=== PATIENT | male | born 1980 | race Hispanic/Latino ===

== ENCOUNTER 2017-08-31 18:59 | Observation (INO) | payer BC ==
[2017-08-31] MEDS ORDERED: Ondansetron ODT 8 MG TAB ONE (19:42)
[2017-08-31 20:02] LABS: #Eosinphils 0.1 thou/uL (0.0-0.7); #Lymphocytes 0.6 thou/uL (1.20-3.40); #Monocytes 0.8 thou/uL (0.11-0.59); #Neutrophils 9.3 thou/uL (1.40-6.50); %Basophils 0.1 % (0.0-1.0); %Eosinophils 1.2 % (0.0-10.0); %Lymphocytes 5.7 % (21.0-51.0); %Neutrophils 86.1 % (42.0-75.0); Hemoglobin 17.1 g/dL (14.0-18.0); Mean Corpuscular Hemoglobin 29.6 pg (27.0-31.0); Mean Corpuscular Volume 82.1 fl (80.0-94.0); Mean Platelet Volume 7.9 fL (7.4-10.4); Platelet Count 253 thou/uL (130-400); RBC Distribution Width 12.2 % (11.5-14.5); Red Blood Cell (RBC) Count 5.77 mill/uL (4.70-6.10); White Blood Cell (WBC) Count 10.8 thou/uL (4.8-10.8)
[2017-08-31 20:27] LABS: ALT (SGPT) 64 U/L (8-55); AST (SGOT) 37 U/L (5-34); Albumin 4.3 g/dL (3.5-5.0); Alkaline Phosphatase 122 U/L (40-150); Anion Gap 12 mmol/L (10-20); BUN (Urea Nitrogen) 10 mg/dL (8.9-20.6); Bilirubin, Total 0.6 mg/dL (0.2-1.2); Calc. Creatinine Clearance 0 mL/min (70-130); Calcium 9.3 mg/dL (7.8-10.44); Carbon Dioxide 24 mmol/L (22-29); Chloride 103 mmol/L (98-107); Estimated GFR-MDRD Greater than 90; Globulin 2.8 g/dL (2.4-3.5); Glucose 118 mg/dL (70-105); Lipase 48 U/L (8-78); Potassium 3.8 mmol/L (3.5-5.1); Protein, Total 7.1 g/dL (6.0-8.3); Sodium 135 mmol/L (136-145)
[2017-08-31] MEDS ORDERED: Acetaminophen 325 MG TAB ONE (21:31)
--- NOTE | 2017-08-31 21:43 | RAD ---
PORTABLE CHEST: HISTORY: Nausea and vomiting. Diarrhea. COMPARISON: 06/23/2016 FINDINGS: The lung underwood are clear. No infiltrate seen. Heart and mediastinum unremarkable. IMPRESSION: No acute process. POS: [facility]
[2017-08-31 21:47] LABS: Bilirubin Negative (Negative); Blood, Urine Negative (Negative); Clarity CLEAR (Clear); Glucose, Urine (Dipstick) Negative (Negative); Leukocyte Negative (Negative); Nitrite Negative (Negative); Protein, Urine (Dipstick) Negative (Neg-Trace); Specific Gravity, Urine 1.015 (1.002-1.036); Urobilinogen 0.2 mg/dL (0.2-1.0)
[2017-08-31] MEDS ORDERED: methylPREDNISolone Sod Succ/PF 125 MG/2 ML VIAL ONE (22:08)
[2017-08-31] MEDS ORDERED: Water For Inject, Bacteriostat 30 ML ONE (22:10)
[2017-08-31] MEDS ORDERED: Sodium Chloride 0.9% 1,000 ML IV SCH (23:47)
[2017-08-31] MEDS ORDERED: Ondansetron PF 4 MG/2 ML Vial IVP PRN (23:47)
[2017-09-01 00:21] VITALS: BMI 37.6
[2017-09-01 00:31] LABS: HIV (1/2) Antibody/Antigen Non-Reactive (NonReactive); HIV 1/2 INDEX 0.08 S/CO (<1.00)
[2017-09-01] MEDS ORDERED: Cyclobenzaprine 10 MG TAB PO PRN (01:25)
[2017-09-01] MEDS ORDERED: Ondansetron PF 4 MG/2 ML Vial IVP PRN (01:25)
[2017-09-01] MEDS ORDERED: Acetaminophen 500 MG TAB PO PRN (01:25)
[2017-09-01] MEDS ORDERED: Ondansetron ODT 4 MG TAB PO PRN (01:25)
[2017-09-01] MEDS ORDERED: traMADol HCl 50 MG TAB PO PRN (01:34)
[2017-09-01] MEDS: Sodium Chloride 0.9% 1,000 ML IV SCH ×2 (01:44→09:44)
[2017-09-01] MEDS ORDERED: Hydroxychloroquine Sulfate 200 MG TAB PO SCH ×2 (02:00→09:00)
[2017-09-01] MEDS ORDERED: Famotidine 20 MG TAB PO SCH ×2 (02:00→09:00)
[2017-09-01] MEDS ORDERED: Metoprolol Tartrate 25 MG TAB PO SCH ×2 (02:00→09:00)
[2017-09-01] MEDS ORDERED: Mycophenolate 250 MG CAP PO SCH ×2 (02:00→09:00)
[2017-09-01] MEDS ORDERED: Colchicine 0.6 MG TAB PO SCH ×2 (02:00→09:00)
[2017-09-01] MEDS: traMADol HCl 50 MG TAB PO PRN ×2 (02:13→09:25)
[2017-09-01 05:23] LABS: Band 10 % (5-11); Lymphocytes 1 % (21-51); MDiff Complete? YES; Mean Corpuscular HGB CONC 35.2 g/dL (32.0-36.0); Mean Corpuscular Volume 82.4 fl (80.0-94.0); Mean Platelet Volume 8.5 fL (7.4-10.4); Monocytes 1 % (0-10); Neutrophil 88 % (42-75); PLT Morphology Comment Appears Adequate; Platelet Count 255 thou/uL (130-400); RBC Distribution Width 12.1 % (11.5-14.5); Red Blood Cell (RBC) Count 5.53 mill/uL (4.70-6.10); White Blood Cell (WBC) Count 10.5 thou/uL (4.8-10.8)
[2017-09-01 05:31] LABS: ALT (SGPT) 56 U/L (8-55); AST (SGOT) 27 U/L (5-34); Albumin 4.2 g/dL (3.5-5.0); Alkaline Phosphatase 112 U/L (40-150); Anion Gap 12 mmol/L (10-20); BUN (Urea Nitrogen) 9 mg/dL (8.9-20.6); Bilirubin, Total 0.6 mg/dL (0.2-1.2); Calc. Creatinine Clearance 213 mL/min (70-130); Calcium 9.2 mg/dL (7.8-10.44); Carbon Dioxide 24 mmol/L (22-29); Chloride 106 mmol/L (98-107); Estimated GFR-MDRD Greater than 90; Globulin 2.6 g/dL (2.4-3.5); Glucose 159 mg/dL (70-105); Potassium 3.9 mmol/L (3.5-5.1); Protein, Total 6.8 g/dL (6.0-8.3); Sodium 138 mmol/L (136-145)
--- NOTE | 2017-09-01 06:32 | HP ---
PRIMARY CARE PROVIDER: Dr. Leander Villaseñor CHIEF COMPLAINT: Nausea, vomiting, diarrhea. HISTORY OF PRESENT ILLNESS: This is a 37-year-old male who presented to [facility] Emergency Department complaining of less than 24-hour history of nausea, vomiting and diarrhea. The patient apparently had up to 7 large volume watery diarrhea episodes with associated e mesis. The patient denied any travel history, but does state that his younger son has had similar sy mptoms over the last 48 hours prior to the patient's presentation to the emergency room. The patient 's son had nausea, vomiting, diarrhea, and fever. The patient denied any recent antibiotic exposure, blood in the stool or documented fever at home. The patient states he feels sweaty and some chills, but did not take any specific home remedy for relief. The patient with significant history of immun ocompromised on chronic, colchicine, Plaquenil, CellCept and Benlysta for systemic lupus erythematosu s. The patient states he is on no specific new medication regimen in the last year. In the emergenc y room, the patient underwent general evaluation including metabolic screening showing no acute proce ss. The patient did receive treatment including intravenous normal saline x3 liters and IV Zofran, S esteban-Medrol and Tylenol. The patient was transferred to the observation unit for evaluation. PAST MEDICAL HISTORY: 1. Systemic lupus erythematosus. 2. History of pericarditis secondary to #1. 3. History of latent tuberculosis on previous isoniazid and vitamin B6. PAST SURGICAL HISTORY: Status post PICC line placement with subsequent removal. CURRENT MEDICATIONS: 1. Colchicine 0.6 mg p.o. b.i.d. 2. Cyclobenzaprine 10 mg p.o. p.r.n. 3. Plaquenil 200 mg p.o. b.i.d. 4. Losartan 100 mg p.o. daily. 5. Metoprolol tartrate 25 mg p.o. b.i.d. 6. CellCept 1000 mg p.o. b.i.d. 7. Prednisone 3 mg p.o. daily. 8. Tramadol 50 mg 1-2 tabs p.o. q.6 hours p.r.n. pain. ALLERGIES: No known drug allergies. FAMILY HISTORY: Father and mother with diabetes mellitus type 2. SOCIAL HISTORY: The patient is , resides in [place], [place]. Remote history of marijuana use. No current alcohol, tobacco or illicit drug use. Currently unemployed. REVIEW OF SYSTEMS: The following complete review of systems was negative, unless otherwise mentioned in the HPI or below: Constitutional: Weight loss or gain, ability to conduct usual activities. Skin: Rash, itching. Eyes: Double vision, pain. ENT/Mouth: Nose bleeding, neck stiffness, pain, tenderness. Cardiovascular: Palpitations, dyspnea on exertion, orthopnea. Respiratory: Shortness of breath, wheezing, cough, hemoptysis, fever or night sweats. Gastrointestinal: Poor appetite, abdominal pain, heartburn, nausea, vomiting, constipation, or diarrhea. Genitourinary: Urgency, frequency, dysuria, nocturia. Musculoskeletal: Pain, swelling. Neurologic/Psychiatric: Anxiety, depression. Allergy/Immunologic: Skin rash, bleeding tendency. PHYSICAL EXAMINATION: VITAL SIGNS: On admission, blood pressure 137/74, pulse 100, respiratory rate 16, temperature 98.6 d egrees Fahrenheit, O2 saturation 95% on room air. GENERAL APPEARANCE: This is a 37-year-old male, alert and oriented x3, pleasant, conversant , in no acute distress. HEENT: Pupils are equal, round, and reactive to light and accommodation. Extraocular muscles are in tact. No scleral icterus, no conjunctival injection. Nares patent. OP is clear. Oral mucosa dry a ppearing. NECK: Supple, no cervical adenopathy, no thyromegaly, no carotid bruits, no JVD appreciated. Cervic al spine full active and passive range of motion. No meningeal signs appreciated. CHEST: Lungs are clear to auscultation bilaterally. CARDIOVASCULAR: S1, S2, without noted murmur, rub, or gallop. ABDOMEN: Rounded, soft, nontender. Bowel sounds are diminished in all 4 quadrants. No palpable mas s. No rebound or guarding appreciated. EXTREMITIES: Warm and dry with fair turgor. No clubbing, cyanosis or asymmetric edema appreciated. Pulses palpable distally at the dorsalis pedis, posterior tibial, and popliteal arteries bilaterally . Capillary refill less than 2 seconds. NEUROLOGIC: Cranial nerves II-XII are grossly intact. No focal or lateralizing signs appreciated. PERTINENT LABORATORY AND X-RAY FINDINGS: Basic metabolic profile within normal limits. Total biliru bin 0.6, AST 37, ALT 64, alkaline phosphatase 122, lipase 48. CBC showed a white blood cell count of 10.8, hemoglobin 17, hematocrit 47, platelet count 253 with 86% neutrophils. Lactic acid level 1.6. Urinalysis negative 08/31/2017. Portable chest x-ray dated 08/31/2017 showed no acute cardiopulmon bridger process. ASSESSMENT AND PLAN: 1. Acute gastroenteritis. Suspect viral etiology. We will continue intravenous normal saline at 12 5 mL per hour. Continue supportive management. Hold antidiarrheals given the patient's acute presen tation. Check stool for C. difficile antigen and toxin. Suspect improvement and resolution over the next 24-48 hours. 2. Nausea, vomiting secondary to #1. Continue intravenous normal saline at 125 mL per hour. Zofran 4 mg IV every 6 hours p.r.n. 3. Systemic lupus erythematosus, on chronic immunosuppressive therapy. Stable currently. Resume co lchicine 0.6 mg b.i.d. and Plaquenil 200 mg p.o. b.i.d. and CellCept 1000 mg p.o. b.i.d. 4. Sinus tachycardia. Suspect secondarily to dehydration and infectious process. We will continue intravenous normal saline as outlined previously. Resume metoprolol tartrate 25 mg p.o. b.i.d. 5. Moderate dehydration. Continue IV fluids as outlined previously. Encourage increased free water intake orally. 6. Prophylaxis. Sequential compression devices while in bed. Pepcid 20 mg p.o. b.i.d. 7. Code status is full. Surrogate medical decision maker is the patient's spouse.
[2017-09-01] MEDS ORDERED: predniSONE 1 MG TAB PO SCH (08:00)
[2017-09-01 16:03] VITALS: BP 108/62; TEMP 97.8
--- NOTE | 2017-09-02 14:31 | DIS ---
DATE OF ADMISSION: 09/01/2017 DATE OF DISCHARGE: 09/01/2017 DISCHARGE DIAGNOSES: As of the followin. Acute gastritis, possible viral etiology. 2. Nausea and vomiting. 3. History of lupus. 4. Sinus tachycardia and moderate dehydration. HOSPITAL COURSE: The patient is a very pleasant 37-year-old male, who initially presented to the [facility] for nausea, vomiting, and diarrhea. The patient had about 6-7 bouts of watery diarrhea and als o emesis. Patient initially was given IV fluids, and given a history of immunocompromised, he also w as treated with IV antibiotics. The patient continued to improve throughout the hospital stay. His stool for Campylobacter was negative. Stool for E. coli toxins were also negative. Also, C. diffici le toxin was checked, which also was negative. The patient actually started feeling well the and he was discharged home. HOME MEDICATIONS: Were as of the following. 1. He is on tramadol 50-100 mg b.i.d. 2. Prednisone 3 mg q.a.m. 3. Lopressor 25 mg b.i.d. 4. Plaquenil 200 mg b.i.d. 5. Colchicine 0.6 mg b.i.d. 6. CellCept 1000 mg p.o. b.i.d. Again, patient's diarrhea subsided and he was discharged home. The patient will follow up as an outp atient with his primary and his escrow manager. PHYSICAL EXAMINATION: VITAL SIGNS: Temperature 97.8, pulse 89, respirations 20, O2 sat 95% on room air, blood pressure 108 /62. GENERAL: He is awake, alert, oriented x3. He does not appear in distress. CARDIOVASCULAR: S1 and S2 present. No murmurs, rubs, or gallops. ABDOMEN: Soft and nontender. Bowel sounds are present x2. EXTREMITIES: No edema. Pedal pulses are present x2.
== END 2017-09-01 17:45 | disposition home or self-care (01) ==
LOC: ERS 18:59 → 2SW 23:19 → UNDODISOB 09-01 17:25
PROVIDERS: ADMIT Family Medicine; ATTEND Family Medicine
DX: K52.9 Noninfective gastroenteritis and colitis, unspecified (principal); R00.0 Tachycardia, unspecified; M32.9 Systemic lupus erythematosus, unspecified; Z79.899 Other long term (current) drug therapy
CPT/HCPCS: 36415; 71045; 80053; 81003; 83605; 83630; 83690; 85007; 85025; 85027; 85652; 86140; 87040; 87045; 87046; 87081; 87324; 87389; 87449; 87899; 96361; 96374; G0378; J2930; J7517

== ENCOUNTER 2018-01-22 03:02 | Emergency (ER) | payer BC | END 2018-01-22 03:42 | disposition home or self-care (01) | LOC: ERS 03:02 | DX: F19.939 Other psychoactive substance use, unspecified with withdrawal, unspecified (principal); E78.5 Hyperlipidemia, unspecified; I10 Essential (primary) hypertension; Z87.891 Personal history of nicotine dependence; Z79.899 Other long term (current) drug therapy | CPT/HCPCS: 99283 ==

== ENCOUNTER 2018-02-02 09:16 | Outpatient (CLI) | payer BC ==
--- NOTE | 2018-02-02 11:35 | RAD ---
PA AND LATERAL VIEWS CHEST: HISTORY: Nonspecific reaction to gamma interferon without active TB. FINDINGS: Comparison is made with the exam of 10/18/2015. The heart size is normal. No focal areas of consolidation, pneumothoraces, or pleural effusions are seen. No acute osseous abnormalities are identified. IMPRESSION: No acute process. No evidence of active pulmonary tuberculosis. POS: [facility]
== END 2018-02-02 09:17 | disposition home or self-care (01) ==
LOC: BICRAD 09:16
PROVIDERS: ATTEND Internal Medicine Rheumatology
DX: R76.12 Nonspecific reaction to cell mediated immunity measurement of gamma interferon antigen response without active tuberculosis (principal)
CPT/HCPCS: 71046

== ENCOUNTER 2018-02-20 | Emergency (ER) | payer BC ==
[2018-02-20] MEDS ORDERED: Dexamethasone 4 MG TAB ONE (00:32)
[2018-02-20] MEDS ORDERED: Ketorolac Tromethamine 30 MG/ML VIAL ONE (00:32)
[2018-02-20 00:45] LABS: #Eosinphils 0.1 thou/uL (0.0-0.7); #Lymphocytes 1.6 thou/uL (1.20-3.40); #Monocytes 0.8 thou/uL (0.11-0.59); #Neutrophils 5.8 thou/uL (1.40-6.50); %Basophils 0.4 % (0.0-1.0); %Eosinophils 1.7 % (0.0-10.0); %Lymphocytes 19.3 % (21.0-51.0); %Neutrophils 69.5 % (42.0-75.0); Hemoglobin 15.7 g/dL (14.0-18.0); Mean Corpuscular HGB CONC 34.2 g/dL (32.0-36.0); Mean Corpuscular Hemoglobin 28.1 pg (27.0-31.0); Mean Platelet Volume 8.9 fL (7.4-10.4); Platelet Count 285 thou/uL (130-400); RBC Distribution Width 12.3 % (11.5-14.5); Red Blood Cell (RBC) Count 5.59 mill/uL (4.70-6.10); White Blood Cell (WBC) Count 8.4 thou/uL (4.8-10.8)
[2018-02-20 01:05] LABS: ALT (SGPT) 85 U/L (8-55); AST (SGOT) 45 U/L (5-34); Albumin 4.2 g/dL (3.5-5.0); Alkaline Phosphatase 147 U/L (40-150); Anion Gap 15 mmol/L (10-20); BUN (Urea Nitrogen) 13 mg/dL (8.9-20.6); Bilirubin, Total 0.5 mg/dL (0.2-1.2); CRP (Inflammatory) Less than 0.50 mg/dL (= or < 0.5); Calc. Creatinine Clearance 0 mL/min (70-130); Calcium 9.3 mg/dL (7.8-10.44); Carbon Dioxide 23 mmol/L (22-29); Chloride 105 mmol/L (98-107); Estimated GFR-MDRD Greater than 90; Globulin 3.1 g/dL (2.4-3.5); Glucose 141 mg/dL (70-105); Potassium 3.5 mmol/L (3.5-5.1); Protein, Total 7.3 g/dL (6.0-8.3); Sodium 139 mmol/L (136-145)
== END 2018-02-20 01:29 | disposition home or self-care (01) ==
LOC: ERS
DX: M32.9 Systemic lupus erythematosus, unspecified (principal); E78.5 Hyperlipidemia, unspecified; I10 Essential (primary) hypertension; Z87.891 Personal history of nicotine dependence; Z79.899 Other long term (current) drug therapy
CPT/HCPCS: 80053; 85025; 85652; 86140; 96361; 96374; J1885; J8540

== ENCOUNTER 2018-03-09 08:18 | Emergency (ER) | payer BC ==
[2018-03-09] MEDS ORDERED: Ondansetron ODT 8 MG TAB ONE (09:21)
[2018-03-09 09:47] LABS: #Eosinphils 0.2 thou/uL (0.0-0.7); #Lymphocytes 1.2 thou/uL (1.20-3.40); #Monocytes 0.6 thou/uL (0.11-0.59); #Neutrophils 5.3 thou/uL (1.40-6.50); %Basophils 0.3 % (0.0-1.0); %Eosinophils 2.9 % (0.0-10.0); %Lymphocytes 16.1 % (21.0-51.0); %Monocytes 8.3 % (0.0-10.0); %Neutrophils 72.4 % (42.0-75.0); Hemoglobin 16.1 g/dL (14.0-18.0); Mean Corpuscular HGB CONC 33.7 g/dL (32.0-36.0); Mean Corpuscular Hemoglobin 27.8 pg (27.0-31.0); Mean Corpuscular Volume 82.6 fL (78.0-98.0); Mean Platelet Volume 8.9 fL (7.4-10.4); Platelet Count 239 thou/uL (130-400); RBC Distribution Width 12.3 % (11.5-14.5); Red Blood Cell (RBC) Count 5.78 mill/uL (4.70-6.10); White Blood Cell (WBC) Count 7.4 thou/uL (4.8-10.8)
[2018-03-09 10:06] LABS: ALT (SGPT) 89 U/L (8-55); AST (SGOT) 48 U/L (5-34); Albumin 4.1 g/dL (3.5-5.0); Alkaline Phosphatase 131 U/L (40-150); Anion Gap 11 mmol/L (10-20); BUN (Urea Nitrogen) 10 mg/dL (8.9-20.6); Bilirubin, Total 0.6 mg/dL (0.2-1.2); Calc. Creatinine Clearance 0 mL/min (70-130); Calcium 9.4 mg/dL (7.8-10.44); Carbon Dioxide 25 mmol/L (22-29); Chloride 107 mmol/L (98-107); Estimated GFR-MDRD Greater than 90; Globulin 2.7 g/dL (2.4-3.5); Glucose 131 mg/dL (70-105); Potassium 3.7 mmol/L (3.5-5.1); Protein, Total 6.8 g/dL (6.0-8.3); Sodium 139 mmol/L (136-145)
== END 2018-03-09 10:50 | disposition home or self-care (01) ==
LOC: ERS 08:18
DX: F11.23 Opioid dependence with withdrawal (principal); K75.9 Inflammatory liver disease, unspecified; E78.5 Hyperlipidemia, unspecified; Z87.891 Personal history of nicotine dependence; Z79.899 Other long term (current) drug therapy
CPT/HCPCS: 36415; 80053; 85025; 94760; 96365; 96375; 99284; J1200; J1885; J2765; S0028

== ENCOUNTER 2018-03-09 14:30 | Emergency (ER) | payer BC ==
[2018-03-09] MEDS ORDERED: Dicyclomine 20 MG TAB ONE (15:13)
[2018-03-09] MEDS ORDERED: cloNIDine 0.1 MG TAB ONE (15:13)
[2018-03-09] MEDS ORDERED: Ketorolac Tromethamine 30 MG/ML VIAL ONE (15:14)
[2018-03-09] MEDS ORDERED: Famotidine/PF 20 mg/2ml Vial ONE (15:14)
[2018-03-09] MEDS ORDERED: Metoclopramide HCl 10 MG/2 ML VIAL ONE (15:14)
[2018-03-09] MEDS ORDERED: diphenhydrAMINE 50 MG/ML VIAL ONE (15:14)
== END 2018-03-09 16:29 | disposition home or self-care (01) ==
LOC: SCSER 14:30
DX: F11.23 Opioid dependence with withdrawal (principal); I10 Essential (primary) hypertension; E78.5 Hyperlipidemia, unspecified; Z79.899 Other long term (current) drug therapy
CPT/HCPCS: 94760; J1200; J1885; J2765; S0028

== ENCOUNTER 2018-04-21 14:11 | Emergency (ER) | payer BC ==
[2018-04-21 14:59] LABS: #Eosinphils 0.1 thou/uL (0.0-0.7); #Lymphocytes 1.4 thou/uL (1.20-3.40); #Monocytes 0.6 thou/uL (0.11-0.59); #Neutrophils 5.3 thou/uL (1.40-6.50); %Basophils 0.5 % (0.0-1.0); %Eosinophils 1.1 % (0.0-10.0); %Lymphocytes 18.4 % (21.0-51.0); %Monocytes 8.4 % (0.0-10.0); %Neutrophils 71.5 % (42.0-75.0); Hemoglobin 16.6 g/dL (14.0-18.0); Mean Corpuscular HGB CONC 34.8 g/dL (32.0-36.0); Mean Corpuscular Hemoglobin 29.3 pg (27.0-31.0); Mean Corpuscular Volume 84.2 fL (78.0-98.0); Mean Platelet Volume 8.9 fL (7.4-10.4); Platelet Count 292 thou/uL (130-400); RBC Distribution Width 12.1 % (11.5-14.5); Red Blood Cell (RBC) Count 5.68 mill/uL (4.70-6.10); White Blood Cell (WBC) Count 7.4 thou/uL (4.8-10.8)
[2018-04-21 15:12] LABS: ALT (SGPT) 140 U/L (8-55); AST (SGOT) 90 U/L (5-34); Albumin 4.4 g/dL (3.5-5.0); Alkaline Phosphatase 143 U/L (40-150); Anion Gap 17 mmol/L (10-20); BUN (Urea Nitrogen) 10 mg/dL (8.9-20.6); Bilirubin, Total 0.8 mg/dL (0.2-1.2); CK (CPK) 134 U/L (30-200); Calc. Creatinine Clearance 0 mL/min (70-130); Calcium 9.7 mg/dL (7.8-10.44); Carbon Dioxide 20 mmol/L (22-29); Chloride 106 mmol/L (98-107); Estimated GFR-MDRD Greater than 90; Globulin 2.3 g/dL (2.4-3.5); Glucose 141 mg/dL (70-105); Lipase 45 U/L (8-78); Potassium 3.5 mmol/L (3.5-5.1); Protein, Total 6.7 g/dL (6.0-8.3); Sodium 139 mmol/L (136-145)
--- NOTE | 2018-04-21 15:27 | RAD ---
CHEST ONE VIEW: Date: 04-21-18 Time: 2:34 p.m. History: Chest pain. FINDINGS: Comparison is made with exam of 02-02-18. The heart size is normal. The lungs are expanded without focal areas of consolidation, pneumothoraces or pleural effusions. IMPRESSION: No radiographic evidence of acute cardiopulmonary process. POS: [facility]
== END 2018-04-21 17:11 | disposition home or self-care (01) ==
LOC: ERS 14:11
DX: F45.8 Other somatoform disorders (principal); E78.5 Hyperlipidemia, unspecified; I10 Essential (primary) hypertension; Z87.891 Personal history of nicotine dependence; Z79.899 Other long term (current) drug therapy; Z79.891 Long term (current) use of opiate analgesic
CPT/HCPCS: 36415; 71045; 80053; 82550; 83690; 84484; 85025; 93005

== ENCOUNTER 2018-06-29 06:56 | Outpatient (CLI) | payer BC ==
--- NOTE | 2018-06-29 07:59 | ULT ---
FEXAM: US Gallbladder RUQ CLINICAL HISTORY: Abnormal liver.. COMPARISON: None. FINDINGS: Exam is limited by patient body habitus and bowel gas Liver:Increased echogenicity may be due to hepatic steatosis or hepatocellular disease. Subsequent ev aluation for hepatic masses and intrahepatic biliary dilatation is limited. Bile ducts: Common bile duct diameter is 0.42 cm Gallbladder: No sonographic evidence of cholelithiasis, gallbladder wall thickening or pericolic cyst ic fluid. Sanz's sign:Negative Pancreas: Not well seen Right kidney: Right kidney has a normal cortical echotexture, measuring 5.6 x 5.4 x 12.1 cm. No hydro nephrosis. IMPRESSION: No sonographic evidence of cholelithiasis or cholecystitis.
== END 2018-06-29 06:57 | disposition home or self-care (01) ==
LOC: BICULT 06:56
PROVIDERS: ATTEND Internal Medicine Rheumatology
DX: R74.8 Abnormal levels of other serum enzymes (principal)
CPT/HCPCS: 76705

== ENCOUNTER 2018-10-02 22:40 | Emergency (ER) | payer BC | END 2018-10-02 22:45 | disposition left against medical advice (07) | LOC: ERS 22:40 | DX: Z53.21 Procedure and treatment not carried out due to patient leaving prior to being seen by health care provider (principal) ==

== ENCOUNTER 2018-10-02 23:00 | Emergency (ER) | payer BC ==
[2018-10-03 00:16] LABS: ALT (SGPT) 271 U/L (8-55); AST (SGOT) 188 U/L (5-34); Albumin 3.8 g/dL (3.5-5.0); Alkaline Phosphatase 151 U/L (40-150); Anion Gap 14 mmol/L (10-20); BUN (Urea Nitrogen) 9 mg/dL (8.9-20.6); Bilirubin, Total 0.6 mg/dL (0.2-1.2); CK (CPK) 102 U/L (30-200); Calc. Creatinine Clearance 0 mL/min (70-130); Calcium 9.6 mg/dL (7.8-10.44); Carbon Dioxide 28 mmol/L (22-29); Chloride 102 mmol/L (98-107); Estimated GFR-MDRD 78; Globulin 2.6 g/dL (2.4-3.5); Glucose 254 mg/dL (70-105); Potassium 4.1 mmol/L (3.5-5.1); Protein, Total 6.4 g/dL (6.0-8.3); Sodium 140 mmol/L (136-145)
[2018-10-03 00:17] LABS: #Basophils 0.1 thou/uL (0.0-0.2); #Eosinphils 0.1 thou/uL (0.0-0.7); #Lymphocytes 0.7 thou/uL (1.20-3.40); #Monocytes 0.5 thou/uL (0.11-0.59); #Neutrophils 7.3 thou/uL (1.40-6.50); %Basophils 1.2 % (0.0-1.0); %Eosinophils 0.7 % (0.0-10.0); %Lymphocytes 8.4 % (21.0-51.0); %Monocytes 5.5 % (0.0-10.0); %Neutrophils 84.2 % (42.0-75.0); Hemoglobin 14.9 g/dL (14.0-18.0); Mean Corpuscular HGB CONC 34.7 g/dL (32.0-36.0); Mean Corpuscular Hemoglobin 28.6 pg (27.0-31.0); Mean Corpuscular Volume 82.3 fL (78.0-98.0); Mean Platelet Volume 8.6 fL (7.4-10.4); Platelet Count 212 thou/uL (130-400); RBC Distribution Width 11.5 % (11.5-14.5); Red Blood Cell (RBC) Count 5.21 mill/uL (4.70-6.10); White Blood Cell (WBC) Count 8.6 thou/uL (4.8-10.8)
[2018-10-03 00:23] LABS: Bilirubin Negative (Negative); Blood, Urine Negative (Negative); Clarity Clear (Clear); Glucose, Urine (Dipstick) 100 mg/dL (Negative); Leukocyte Negative (Negative); Nitrite Negative (Negative); Protein, Urine (Dipstick) Negative (Neg-Trace); Urobilinogen 0.2 mg/dL (Less than 2)
== END 2018-10-03 00:54 | disposition home or self-care (01) ==
LOC: SCSER 23:00
DX: E86.0 Dehydration (principal); R74.8 Abnormal levels of other serum enzymes; I10 Essential (primary) hypertension; Z79.899 Other long term (current) drug therapy
CPT/HCPCS: 36415; 80053; 81003; 82550; 85025; 93005; 96360

== ENCOUNTER 2018-10-05 09:11 | Emergency (ER) | payer BC ==
[2018-10-05 09:49] LABS: #Eosinphils 0.2 thou/uL (0.0-0.7); #Lymphocytes 1.1 thou/uL (1.20-3.40); #Monocytes 0.5 thou/uL (0.11-0.59); #Neutrophils 4.9 thou/uL (1.40-6.50); %Basophils 0.6 % (0.0-1.0); %Eosinophils 2.5 % (0.0-10.0); %Lymphocytes 16.4 % (21.0-51.0); %Monocytes 7.3 % (0.0-10.0); %Neutrophils 73.2 % (42.0-75.0); Hemoglobin 16.5 g/dL (14.0-18.0); Mean Corpuscular HGB CONC 34.8 g/dL (32.0-36.0); Mean Corpuscular Hemoglobin 29.8 pg (27.0-31.0); Mean Corpuscular Volume 85.5 fL (78.0-98.0); Mean Platelet Volume 9.5 fL (7.4-10.4); Platelet Count 222 thou/uL (130-400); Red Blood Cell (RBC) Count 5.55 mill/uL (4.70-6.10); White Blood Cell (WBC) Count 6.8 thou/uL (4.8-10.8)
[2018-10-05 10:09] LABS: ALT (SGPT) 260 U/L (8-55); AST (SGOT) 177 U/L (5-34); Albumin 4.4 g/dL (3.5-5.0); Alkaline Phosphatase 189 U/L (40-150); Anion Gap 15 mmol/L (10-20); BUN (Urea Nitrogen) 9 mg/dL (8.9-20.6); Bilirubin, Total 0.8 mg/dL (0.2-1.2); CK (CPK) 95 U/L (30-200); Calc. Creatinine Clearance 0 mL/min (70-130); Calcium 9.8 mg/dL (7.8-10.44); Carbon Dioxide 27 mmol/L (22-29); Chloride 100 mmol/L (98-107); Estimated GFR-MDRD Greater than 90; Globulin 3.1 g/dL (2.4-3.5); Glucose 230 mg/dL (70-105); Potassium 3.6 mmol/L (3.5-5.1); Protein, Total 7.5 g/dL (6.0-8.3); Sodium 138 mmol/L (136-145)
--- NOTE | 2018-10-05 10:33 | RAD ---
PORTABLE CHEST: Date: 10/05/18 HISTORY: Dyspnea. COMPARISON: 04/21/18. FINDINGS: Heart size is within normal limits considering portable technique. Mediastinal structures appear unre markable. The lungs are clear of any infiltrative process. IMPRESSION: No active intrathoracic disease. POS: [facility]
[2018-10-05 10:44] LABS: Bilirubin Negative (Negative); Blood, Urine Negative (Negative); Glucose, Urine (Dipstick) Negative (Negative); Leukocyte Negative (Negative); Nitrite Negative (Negative); Protein, Urine (Dipstick) Negative (Neg-Trace); Urobilinogen 0.2 mg/dL (Less than 2)
[2018-10-05 10:55] LABS: Bacteria/HPF 1+ HPF (None Seen); RBC/HPF 0-3 HPF (0-3); WBC/HPF 0-3 HPF (0-3)
[2018-10-05 10:58] LABS: Clarity Clear (Clear)
== END 2018-10-05 10:44 | disposition home or self-care (01) ==
LOC: ERS 09:11
DX: R20.2 Paresthesia of skin (principal); I10 Essential (primary) hypertension; M32.9 Systemic lupus erythematosus, unspecified; Z79.899 Other long term (current) drug therapy
CPT/HCPCS: 36416; 71045; 80053; 81003; 82550; 84484; 85025; 93005; 96360

== ENCOUNTER 2020-08-11 15:45 | Emergency (ER) | payer BC ==
[2020-08-11 16:11] LABS: #Lymphocytes 0.4 thou/uL (1.20-3.40); #Monocytes 0.6 thou/uL (0.11-0.59); #Neutrophils 10.3 thou/uL (1.40-6.50); %Basophils 0.1 % (0.0-1.0); %Eosinophils 0.4 % (0.0-10.0); %Lymphocytes 3.8 % (21.0-51.0); %Monocytes 4.9 % (0.0-10.0); %Neutrophils 90.8 % (42.0-75.0); Hemoglobin 16.4 g/dL (14.0-18.0); Mean Corpuscular HGB CONC 35.1 g/dL (32.0-36.0); Mean Corpuscular Hemoglobin 30.4 pg (27.0-31.0); Mean Corpuscular Volume 86.6 fL (78.0-98.0); Mean Platelet Volume 8.9 fL (7.4-10.4); Platelet Count 189 thou/uL (130-400); RBC Distribution Width 12.7 % (11.5-14.5); Red Blood Cell (RBC) Count 5.41 mill/uL (4.70-6.10); White Blood Cell (WBC) Count 11.3 thou/uL (4.8-10.8)
[2020-08-11 16:42] LABS: ALT (SGPT) 112 U/L (8-55); AST (SGOT) 74 U/L (5-34); Albumin 3.7 g/dL (3.5-5.0); Alkaline Phosphatase 139 U/L (40-110); Anion Gap 12 mmol/L (10-20); BUN (Urea Nitrogen) 13 mg/dL (8.9-20.6); Bilirubin, Total 0.5 mg/dL (0.2-1.2); Calc. Creatinine Clearance 0 mL/min (70-130); Calcium 9.4 mg/dL (7.8-10.44); Carbon Dioxide 27 mmol/L (22-29); Chloride 103 mmol/L (98-107); Globulin 2.6 g/dL (2.4-3.5); Glucose 153 mg/dL (70-105); Protein, Total 6.3 g/dL (6.0-8.3); Sodium 138 mmol/L (136-145)
[2020-08-11 18:02] LABS: Bilirubin Negative (Negative); Blood, Urine 1+ (Negative); Clarity Clear (Clear); Glucose, Urine (Dipstick) Normal (Negative); Ketone, Urine Negative (Negative); Leukocyte Negative Leu/uL (Negative); Nitrite Negative (Negative); Protein, Urine (Dipstick) 200 mg/dL (Neg-Trace); Specific Gravity, Urine 1.019 (1.002-1.036); Squamous Epithelial None Seen HPF (0-3); Urobilinogen Normal mg/dL (Less than 2)
[2020-08-11 18:05] LABS: Bacteria/HPF 1+ HPF (None Seen)
== END 2020-08-11 18:13 | disposition home or self-care (01) ==
LOC: ERS 15:45
DX: I10 Essential (primary) hypertension (principal)
CPT/HCPCS: 36415; 80053; 81003; 81015; 84484; 85025; 93005

== ENCOUNTER 2020-11-01 23:22 | Emergency (ER) | payer BC ==
[2020-11-02 00:51] LABS: #Eosinphils 0.1 thou/uL (0.0-0.7); #Lymphocytes 0.9 thou/uL (1.20-3.40); #Monocytes 0.7 thou/uL (0.11-0.59); #Neutrophils 6.8 thou/uL (1.40-6.50); %Basophils 0.1 % (0.0-1.0); %Eosinophils 0.8 % (0.0-10.0); %Lymphocytes 10.6 % (21.0-51.0); %Monocytes 7.9 % (0.0-10.0); %Neutrophils 80.6 % (42.0-75.0); Hemoglobin 15.8 g/dL (14.0-18.0); Mean Corpuscular HGB CONC 35.1 g/dL (32.0-36.0); Mean Corpuscular Hemoglobin 30.9 pg (27.0-31.0); Mean Platelet Volume 8.7 fL (7.4-10.4); Platelet Count 210 thou/uL (130-400); RBC Distribution Width 12.3 % (11.5-14.5); Red Blood Cell (RBC) Count 5.12 mill/uL (4.70-6.10); White Blood Cell (WBC) Count 8.5 thou/uL (4.8-10.8)
[2020-11-02 01:12] LABS: ALT (SGPT) 133 U/L (8-55); AST (SGOT) 81 U/L (5-34); Albumin 3.5 g/dL (3.5-5.0); Alkaline Phosphatase 139 U/L (40-110); Anion Gap 14 mmol/L (10-20); BUN (Urea Nitrogen) 10 mg/dL (8.9-20.6); Bilirubin, Total 0.4 mg/dL (0.2-1.2); Calc. Creatinine Clearance 0 mL/min (70-130); Calcium 8.9 mg/dL (7.8-10.44); Carbon Dioxide 24 mmol/L (22-29); Chloride 103 mmol/L (98-107); Globulin 3.1 g/dL (2.4-3.5); Glucose 294 mg/dL (70-105); Potassium 3.6 mmol/L (3.5-5.1); Protein, Total 6.6 g/dL (6.0-8.3); Sodium 137 mmol/L (136-145)
== END 2020-11-02 03:22 | disposition home or self-care (01) ==
LOC: ERS 23:22
DX: E11.65 Type 2 diabetes mellitus with hyperglycemia (principal); I10 Essential (primary) hypertension; Z79.899 Other long term (current) drug therapy
CPT/HCPCS: 36415; 36416; 71045; 80053; 84484; 85025; 93005

== ENCOUNTER 2020-12-20 16:04 | Emergency (ER) | payer BC ==
[2020-12-20 16:39] LABS: #Eosinphils 0.1 thou/uL (0.0-0.7); #Lymphocytes 0.6 thou/uL (1.20-3.40); #Monocytes 0.5 thou/uL (0.11-0.59); #Neutrophils 6.3 thou/uL (1.40-6.50); %Basophils 0.2 % (0.0-1.0); %Eosinophils 0.7 % (0.0-10.0); %Lymphocytes 8.4 % (21.0-51.0); %Monocytes 6.2 % (0.0-10.0); %Neutrophils 84.5 % (42.0-75.0); Hemoglobin 15.9 g/dL (14.0-18.0); Mean Corpuscular HGB CONC 34.6 g/dL (32.0-36.0); Mean Corpuscular Hemoglobin 29.6 pg (27.0-31.0); Mean Corpuscular Volume 85.7 fL (78.0-98.0); Mean Platelet Volume 9.4 fL (7.4-10.4); Platelet Count 198 thou/uL (130-400); RBC Distribution Width 11.8 % (11.5-14.5); Red Blood Cell (RBC) Count 5.36 mill/uL (4.70-6.10); White Blood Cell (WBC) Count 7.4 thou/uL (4.8-10.8)
[2020-12-20 17:00] LABS: ALT (SGPT) 206 U/L (8-55); AST (SGOT) 173 U/L (5-34); Albumin 3.3 g/dL (3.5-5.0); Alkaline Phosphatase 157 U/L (40-110); Anion Gap 14 mmol/L (10-20); BUN (Urea Nitrogen) 10 mg/dL (8.9-20.6); Bilirubin, Total 0.5 mg/dL (0.2-1.2); Calc. Creatinine Clearance 0 mL/min (70-130); Calcium 8.9 mg/dL (7.8-10.44); Carbon Dioxide 21 mmol/L (22-29); Chloride 101 mmol/L (98-107); Globulin 3.3 g/dL (2.4-3.5); Glucose 455 mg/dL (70-105); Potassium 3.6 mmol/L (3.5-5.1); Protein, Total 6.6 g/dL (6.0-8.3); Sodium 132 mmol/L (136-145)
[2020-12-20 17:03] LABS: Actual Bicarbonate (HCO3v) 26 mEq/L (22-28); Base Excess 1.6 mEq/L (-2.0 to +3.0); Chloride (VBG) 99 mmol/L (98-106); Potassium (VBG) 3.87 mmol/L (3.70-5.30); Sodium 132.6 mmol/L (133-146); pH (venous) 7.43 (7.32-7.43)
[2020-12-20 17:39] LABS: Magnesium 1.6 mg/dL (1.6-2.6); Phosphorus 3.7 mg/dL (2.3-4.7)
[2020-12-20] MEDS ORDERED: Insulin Regular 300 UNITS/3 ML VIAL ONE (18:04)
[2020-12-20 18:14] LABS: Bacteria/HPF None Seen HPF (None Seen); Bilirubin Negative (Negative); Blood, Urine 1+ (Negative); Clarity Clear (Clear); Glucose, Urine (Dipstick) Greater than 1000 mg/dL (Negative); Ketone, Urine Negative (Negative); Leukocyte Negative Leu/uL (Negative); Nitrite Negative (Negative); Protein, Urine (Dipstick) 300 mg/dL (Neg-Trace); Specific Gravity, Urine 1.043 (1.002-1.036); Squamous Epithelial 0-3 HPF (0-3); Urobilinogen Normal mg/dL (Less than 2); WBC/HPF 0-3 HPF (0-3)
== END 2020-12-20 19:11 | disposition home or self-care (01) ==
LOC: ERS 16:04
DX: E11.65 Type 2 diabetes mellitus with hyperglycemia (principal); K75.4 Autoimmune hepatitis; D89.9 Disorder involving the immune mechanism, unspecified; Z79.899 Other long term (current) drug therapy; Z79.891 Long term (current) use of opiate analgesic; E11.9 Type 2 diabetes mellitus without complications; I10 Essential (primary) hypertension
CPT/HCPCS: 36415; 36416; 80053; 81003; 81015; 82805; 83735; 84100; 85025; 93005; J1815

== ENCOUNTER 2021-08-04 00:01 | Emergency (ER) | payer BC ==
[2021-08-04 00:34] LABS: #Lymphocytes 0.6 thou/uL (1.20-3.40); #Monocytes 0.5 thou/uL (0.11-0.59); #Neutrophils 8.6 thou/uL (1.40-6.50); %Basophils 0.1 % (0.0-1.0); %Eosinophils 0.2 % (0.0-10.0); %Lymphocytes 6.5 % (21.0-51.0); %Monocytes 4.9 % (0.0-10.0); %Neutrophils 88.4 % (42.0-75.0); Hemoglobin 13.7 g/dL (14.0-18.0); Mean Corpuscular HGB CONC 35.1 g/dL (32.0-36.0); Mean Corpuscular Volume 88.2 fL (78.0-98.0); Mean Platelet Volume 9.2 fL (7.4-10.4); Platelet Count 195 thou/uL (130-400); RBC Distribution Width 12.4 % (11.5-14.5); Red Blood Cell (RBC) Count 4.41 mill/uL (4.70-6.10); White Blood Cell (WBC) Count 9.7 thou/uL (4.8-10.8)
[2021-08-04 01:23] LABS: ALT (SGPT) 37 U/L (8-55); AST (SGOT) 38 U/L (5-34); Albumin 2.6 g/dL (3.5-5.0); Alkaline Phosphatase 119 U/L (40-110); Anion Gap 11 mmol/L (10-20); BUN (Urea Nitrogen) 20 mg/dL (8.9-20.6); Bilirubin, Total 0.3 mg/dL (0.2-1.2); Calc. Creatinine Clearance 0 mL/min (70-130); Carbon Dioxide 24 mmol/L (22-29); Chloride 107 mmol/L (98-107); Globulin 2.4 g/dL (2.4-3.5); Glucose 291 mg/dL (70-105); Lipase 83 U/L (8-78); Potassium 3.4 mmol/L (3.5-5.1); Sodium 139 mmol/L (136-145)
[2021-08-04 01:26] LABS: Bilirubin Negative (Negative); Blood, Urine 1+ (Negative); Clarity Clear (Clear); Glucose, Urine (Dipstick) 200 mg/dL (Negative); Ketone, Urine Negative (Negative); Leukocyte Negative Leu/uL (Negative); Nitrite Negative (Negative); Protein, Urine (Dipstick) 300 mg/dL (Neg-Trace); Specific Gravity, Urine 1.031 (1.002-1.036); Squamous Epithelial None Seen HPF (0-3); Urobilinogen 3 mg/dL (Less than 2); pH, Urine 6.5 (5.0-9.0)
[2021-08-04 01:27] LABS: Bacteria/HPF Rare-Few HPF (None Seen)
[2021-08-04] MEDS ORDERED: Ketorolac Tromethamine 30 MG/ML VIAL ONE (03:15)
[2021-08-04] MEDS ORDERED: Iopamidol 370 76% 100 ML VIAL ONE (10:43)
== END 2021-08-04 03:49 | disposition home or self-care (01) ==
LOC: ERS 00:01
DX: R07.89 Other chest pain (principal); M79.89 Other specified soft tissue disorders; I10 Essential (primary) hypertension; E11.9 Type 2 diabetes mellitus without complications; M32.9 Systemic lupus erythematosus, unspecified; Z79.899 Other long term (current) drug therapy
CPT/HCPCS: 71045; 71275; 80053; 81003; 81015; 83690; 83880; 84484; 85025; 85379; 93005; 96374; J1885

== ENCOUNTER 2021-08-13 10:11 | Outpatient (CLI) | payer OTHER | END 2021-08-13 10:12 | disposition home or self-care (01) | LOC: RAD 10:11 | PROVIDERS: ATTEND Internal Medicine | DX: Z02.71 Encounter for disability determination (principal) | CPT/HCPCS: 72100 ==

== ENCOUNTER 2021-08-31 14:44 | Inpatient (IN) | payer BC ==
[2021-08-31] MEDS ORDERED: Cefepime 2 GM VIAL ONE (16:28)
[2021-08-31 16:30] LABS: #Basophils 0.2 thou/uL (0.0-0.2); #Lymphocytes 0.2 thou/uL (1.20-3.40); #Monocytes 0.4 thou/uL (0.11-0.59); %Basophils 1.7 % (0.0-1.0); %Eosinophils 0.4 % (0.0-10.0); %Lymphocytes 2.6 % (21.0-51.0); %Monocytes 4.8 % (0.0-10.0); %Neutrophils 90.6 % (42.0-75.0); Mean Corpuscular HGB CONC 35.3 g/dL (32.0-36.0); Mean Corpuscular Hemoglobin 29.6 pg (27.0-31.0); Mean Corpuscular Volume 83.9 fL (78.0-98.0); Mean Platelet Volume 8.6 fL (7.4-10.4); Platelet Count 199 thou/uL (130-400); RBC Distribution Width 11.9 % (11.5-14.5); Red Blood Cell (RBC) Count 5.07 mill/uL (4.70-6.10); White Blood Cell (WBC) Count 8.9 thou/uL (4.8-10.8)
[2021-08-31 16:43] LABS: Bilirubin Negative (Negative); Blood, Urine 2+ (Negative); Clarity Clear (Clear); Glucose, Urine (Dipstick) Normal (Negative); Ketone, Urine Negative (Negative); Leukocyte 75 Leu/uL (Negative); Nitrite Negative (Negative); Protein, Urine (Dipstick) Greater than 600 mg/dL (Neg-Trace); Specific Gravity, Urine 1.036 (1.002-1.036); Squamous Epithelial None Seen HPF (0-3); Urobilinogen Normal mg/dL (Less than 2); WBC/HPF 21-50 HPF (0-3)
[2021-08-31 16:45] LABS: Bacteria/HPF 1+ HPF (None Seen)
[2021-08-31] MEDS ORDERED: Vancomycin 1 GM/200 ML BAG ONE (16:54)
[2021-08-31] MEDS ORDERED: Morphine 4 MG/ML VIAL ONE (17:15)
[2021-08-31] MEDS ORDERED: Ketorolac Tromethamine 30 MG/ML VIAL ONE (17:15)
[2021-08-31 17:19] LABS: ALT (SGPT) 41 U/L (8-55); AST (SGOT) 48 U/L (5-34); Albumin 2.7 g/dL (3.5-5.0); Alkaline Phosphatase 123 U/L (40-110); Anion Gap 12 mmol/L (10-20); BUN (Urea Nitrogen) 10 mg/dL (8.9-20.6); Bilirubin, Total 0.4 mg/dL (0.2-1.2); Calc. Creatinine Clearance 0 mL/min (70-130); Calcium 8.5 mg/dL (7.8-10.44); Carbon Dioxide 26 mmol/L (22-29); Chloride 104 mmol/L (98-107); Globulin 2.8 g/dL (2.4-3.5); Glucose 198 mg/dL (70-105); Potassium 3.7 mmol/L (3.5-5.1); Protein, Total 5.5 g/dL (6.0-8.3); Sodium 138 mmol/L (136-145)
[2021-08-31] MEDS ORDERED: Ondansetron ODT 4 MG TAB SL PRN (18:45)
[2021-08-31] MEDS ORDERED: Ondansetron PF 4 MG/2 ML Vial IVP PRN (18:45)
[2021-08-31] MEDS ORDERED: Sodium Chloride 0.9% 1,000 ML IV SCH (18:45)
[2021-08-31 19:00] VITALS: BMI 32.9
[2021-08-31] MEDS ORDERED: Acetaminophen 325 MG TAB PO PRN (21:44)
[2021-08-31] MEDS ORDERED: HumaLOG 300 UNITS/3 ML VIAL SC PRN ×2 (21:46)
[2021-08-31] MEDS ORDERED: Dextrose 50% Abboject 50 ML SYRINGE SLOW IVP PRN (21:46)
[2021-08-31] MEDS ORDERED: Dextrose 5% in Water 1,000 ML IV PRN (21:46)
[2021-08-31] MEDS: Vancomycin 1.5 GRAM/300 ML BAG 1.5 GM in Premix Bag 1 BAG IVPB SCH (22:57)
[2021-08-31] MEDS ORDERED: Mycophenolate 250 MG CAP PO SCH (23:00)
[2021-08-31] MEDS ORDERED: Valsartan 80 MG TAB PO SCH (23:30)
[2021-09-01] MEDS: cefTRIAXone\\ROCEPHIN 1 GM in Sodium Chloride 0.9% 100 ML IVPB SCH (04:28)
[2021-09-01 07:36] LABS: #Eosinphils 0.1 thou/uL (0.0-0.7); #Lymphocytes 0.2 thou/uL (1.20-3.40); #Monocytes 0.6 thou/uL (0.11-0.59); #Neutrophils 7.1 thou/uL (1.40-6.50); %Basophils 0.1 % (0.0-1.0); %Eosinophils 1.2 % (0.0-10.0); %Lymphocytes 2.9 % (21.0-51.0); %Monocytes 7.2 % (0.0-10.0); %Neutrophils 88.7 % (42.0-75.0); Hemoglobin 13.3 g/dL (14.0-18.0); Mean Corpuscular HGB CONC 34.6 g/dL (32.0-36.0); Mean Corpuscular Hemoglobin 30.2 pg (27.0-31.0); Mean Corpuscular Volume 87.3 fL (78.0-98.0); Mean Platelet Volume 9.3 fL (7.4-10.4); Platelet Count 143 thou/uL (130-400); RBC Distribution Width 11.8 % (11.5-14.5); Red Blood Cell (RBC) Count 4.41 mill/uL (4.70-6.10)
[2021-09-01 07:41] LABS: Anion Gap 8 mmol/L (10-20); BUN (Urea Nitrogen) 10 mg/dL (8.9-20.6); Calc. Creatinine Clearance 198 mL/min (70-130); Calcium 7.6 mg/dL (7.8-10.44); Carbon Dioxide 25 mmol/L (22-29); Chloride 107 mmol/L (98-107); Glucose 136 mg/dL (70-105); Potassium 3.3 mmol/L (3.5-5.1); Sodium 137 mmol/L (136-145)
[2021-09-01] MEDS: Vancomycin 1.5 GRAM/300 ML BAG 1.5 GM in Premix Bag 1 BAG IVPB SCH ×2 (08:50→17:09)
[2021-09-01] MEDS: Spironolactone 25 MG TAB PO SCH (08:51)
[2021-09-01] MEDS: Atenolol 50 MG TAB PO SCH (08:51)
[2021-09-01] MEDS: Mycophenolate 250 MG CAP PO SCH ×2 (08:51→20:55)
[2021-09-01] MEDS: predniSONE 5 MG TAB PO SCH (08:51)
[2021-09-01] MEDS: Colchicine 0.6 MG TAB PO SCH (08:51)
[2021-09-01] MEDS: Enoxaparin Sodium 40 MG/0.4 ML SYRINGE SC SCH (08:51)
[2021-09-01] MEDS ORDERED: Valsartan 80 MG TAB PO SCH ×2 (09:00→21:00)
[2021-09-01] MEDS ORDERED: hydrALAZINE 25 MG TAB PO PRN (10:34)
[2021-09-01] MEDS ORDERED: Naproxen 500 MG TAB PO SCH ×2 (10:45→11:00)
[2021-09-01] MEDS: Famotidine 20 MG TAB PO SCH (20:55)
[2021-09-01] MEDS: Naproxen 500 MG TAB PO SCH (20:56)
[2021-09-01] MEDS ORDERED: traMADol HCl 50 MG TAB PO PRN (23:08)
[2021-09-01 23:54] LABS: Vancomycin, Trough 24.8 ug/mL
[2021-09-02] MEDS: Vancomycin 1.5 GRAM/300 ML BAG 1.5 GM in Premix Bag 1 BAG IVPB SCH (00:18)
[2021-09-02] MEDS ORDERED: Vancomycin 1 GM in Premix Bag 1 BAG IVPB SCH (02:00)
[2021-09-02] MEDS: VANCOMYCIN 1.25 GM/250 ML BAG 1.25 GM in Premix Bag 1 BAG IVPB SCH ×2 (02:05→10:10)
[2021-09-02] MEDS: cefTRIAXone\\ROCEPHIN 1 GM in Sodium Chloride 0.9% 100 ML IVPB SCH (05:27)
[2021-09-02 06:36] LABS: #Eosinphils 0.1 thou/uL (0.0-0.7); #Lymphocytes 0.5 thou/uL (1.20-3.40); #Monocytes 0.5 thou/uL (0.11-0.59); #Neutrophils 4.3 thou/uL (1.40-6.50); %Eosinophils 2.5 % (0.0-10.0); %Lymphocytes 9.7 % (21.0-51.0); %Monocytes 9.2 % (0.0-10.0); %Neutrophils 78.7 % (42.0-75.0); Anion Gap 10 mmol/L (10-20); BUN (Urea Nitrogen) 11 mg/dL (8.9-20.6); Calc. Creatinine Clearance 170 mL/min (70-130); Calcium 7.6 mg/dL (7.8-10.44); Carbon Dioxide 25 mmol/L (22-29); Chloride 110 mmol/L (98-107); Glucose 98 mg/dL (70-105); Hemoglobin 12.9 g/dL (14.0-18.0); Mean Corpuscular HGB CONC 34.4 g/dL (32.0-36.0); Mean Corpuscular Hemoglobin 30.3 pg (27.0-31.0); Mean Corpuscular Volume 88.1 fL (78.0-98.0); Mean Platelet Volume 9.2 fL (7.4-10.4); Platelet Count 140 thou/uL (130-400); Potassium 3.5 mmol/L (3.5-5.1); RBC Distribution Width 11.8 % (11.5-14.5); Red Blood Cell (RBC) Count 4.25 mill/uL (4.70-6.10); Sodium 141 mmol/L (136-145); White Blood Cell (WBC) Count 5.4 thou/uL (4.8-10.8)
[2021-09-02 07:41] VITALS: BP 160/90; TEMP 97.7
[2021-09-02] MEDS: predniSONE 5 MG TAB PO SCH (08:48)
[2021-09-02] MEDS: Atenolol 50 MG TAB PO SCH (08:48)
[2021-09-02] MEDS: Naproxen 500 MG TAB PO SCH (08:48)
[2021-09-02] MEDS: Mycophenolate 250 MG CAP PO SCH (08:48)
[2021-09-02] MEDS: Spironolactone 25 MG TAB PO SCH (08:48)
[2021-09-02] MEDS: Enoxaparin Sodium 40 MG/0.4 ML SYRINGE SC SCH (08:49)
[2021-09-02] MEDS: Famotidine 20 MG TAB PO SCH (08:49)
[2021-09-02] MEDS: Colchicine 0.6 MG TAB PO SCH (08:49)
[2021-09-03] MEDS ORDERED: cloNIDine 0.1mg/24 Hour PATCH TD SCH (09:00)
== END 2021-09-02 12:30 | disposition home or self-care (01) | DRG 155 ==
LOC: ERS 14:44 → T4-A 17:31
PROVIDERS: ADMIT Internal Medicine; ATTEND Internal Medicine
DX: H60.12 Cellulitis of left external ear (principal); N39.0 Urinary tract infection, site not specified; Z20.822 Contact with and (suspected) exposure to COVID-19; E11.9 Type 2 diabetes mellitus without complications; I10 Essential (primary) hypertension; M32.9 Systemic lupus erythematosus, unspecified; F41.9 Anxiety disorder, unspecified; Z88.8 Allergy status to other drugs, medicaments and biological substances; Z79.899 Other long term (current) drug therapy; Z79.52 Long term (current) use of systemic steroids
CPT/HCPCS: 36415; 36416; 80048; 80053; 80202; 81003; 81015; 83605; 85025; 87040; 87086; 96365; 96367; 96375; J0692; J0696; J1650; J1815; J1885; J2270; J3370; J3490; J7050; J7512; J7517; U0003; U0005

== ENCOUNTER 2022-02-04 22:01 | Emergency (ER) | payer BC ==
[2022-02-04] MEDS ORDERED: Ketorolac Tromethamine 30 MG/ML VIAL ONE (22:55)
[2022-02-04] MEDS ORDERED: Cyclobenzaprine 10 MG TAB ONE (22:55)
== END 2022-02-05 00:10 | disposition home or self-care (01) ==
LOC: ERS 22:01
DX: S16.1XXA Strain of muscle, fascia and tendon at neck level, initial encounter (principal); E11.9 Type 2 diabetes mellitus without complications; I10 Essential (primary) hypertension; Z79.899 Other long term (current) drug therapy
CPT/HCPCS: 72125; 96372; J1885

== ENCOUNTER 2022-05-07 21:28 | Emergency (ER) | payer BC | END 2022-05-07 23:17 | disposition home or self-care (01) | LOC: ERS 21:28 | DX: B02.9 Zoster without complications (principal); E11.9 Type 2 diabetes mellitus without complications; I10 Essential (primary) hypertension; Z79.899 Other long term (current) drug therapy | CPT/HCPCS: 71045; 93005 ==

== ENCOUNTER 2022-05-11 19:14 | Inpatient (IN) | payer BC ==
[2022-05-11] MEDS ORDERED: Acyclovir Sodium 1,000 MG in Sodium Chloride 0.9% 250 ML 250 ML IVPB SCH (21:45)
[2022-05-11 21:46] LABS: #Eosinphils 0.1 thou/uL (0.0-0.7); #Lymphocytes 0.7 thou/uL (1.20-3.40); #Monocytes 1.2 thou/uL (0.11-0.59); #Neutrophils 10.1 thou/uL (1.40-6.50); %Basophils 0.1 % (0.0-1.0); %Eosinophils 0.6 % (0.0-10.0); %Monocytes 9.8 % (0.0-10.0); %Neutrophils 83.6 % (42.0-75.0); Hemoglobin 15.5 g/dL (14.0-18.0); Mean Corpuscular HGB CONC 35.7 g/dL (32.0-36.0); Mean Corpuscular Hemoglobin 29.2 pg (27.0-31.0); Mean Corpuscular Volume 81.7 fl (78.0-98.0); Mean Platelet Volume 9.2 fL (7.4-10.4); Platelet Count 270 10x3/uL (130-400); RBC Distribution Width 12.9 % (11.5-14.5); Red Blood Cell (RBC) Count 5.29 mill/uL (4.70-6.10); White Blood Cell (WBC) Count 12.1 10x3/uL (4.8-10.8)
[2022-05-11 22:09] LABS: ALT (SGPT) 31 U/L (8-55); AST (SGOT) 24 U/L (5-34); Alkaline Phosphatase 126 U/L (40-110); Anion Gap 13 mmol/L (10-20); BUN (Urea Nitrogen) 20 mg/dL (8.9-20.6); Bilirubin, Total 0.3 mg/dL (0.2-1.2); Calc. Creatinine Clearance 0 mL/min (70-130); Calcium 9.4 mg/dL (7.8-10.44); Carbon Dioxide 23 mmol/L (22-29); Chloride 103 mmol/L (98-107); Estimated GFR 113; Globulin 2.9 g/dL (2.4-3.5); Glucose 330 mg/dL (70-105); Potassium 3.8 mmol/L (3.5-5.1); Protein, Total 6.9 g/dL (6.0-8.3); Sodium 135 mmol/L (136-145)
[2022-05-11] MEDS ORDERED: Morphine 4 MG/ML VIAL ONE (22:23)
[2022-05-11] MEDS ORDERED: Acetaminophen 500 MG TAB ONE (22:24)
[2022-05-11] MEDS ORDERED: Ketorolac Tromethamine 30 MG/ML VIAL ONE (22:24)
[2022-05-11] MEDS ORDERED: Acetaminophen 325 MG TAB PO PRN (22:45)
[2022-05-11] MEDS ORDERED: Ondansetron PF 4 MG/2 ML Vial IVP PRN (22:45)
[2022-05-11] MEDS ORDERED: Ondansetron ODT 4 MG TAB SL PRN (22:45)
[2022-05-11] MEDS ORDERED: hydrALAZINE 20 MG/ML VIAL ONE (22:51)
[2022-05-11] MEDS ORDERED: HumaLOG 300 UNITS/3 ML VIAL SC PRN (23:00)
[2022-05-11] MEDS ORDERED: Dextrose 5% in Water 1,000 ML IV PRN (23:00)
[2022-05-11] MEDS ORDERED: Dextrose 50% Abboject 50 ML SYRINGE SLOW IVP PRN (23:00)
[2022-05-11] MEDS ORDERED: Morphine 4 MG/ML VIAL SLOW IVP PRN (23:18)
[2022-05-11] MEDS ORDERED: predniSONE 20 MG TAB PO SCH (23:45)
[2022-05-12 00:12] LABS: HIV (1/2) Antibody/Antigen Non-Reactive (NonReactive); HIV 1/2 INDEX 0.18 S/CO (<1.00)
[2022-05-12 00:50] VITALS: BMI 34.4
[2022-05-12] MEDS ORDERED: diphenhydrAMINE 25 MG CAP PO SCH (02:45)
[2022-05-12] MEDS ORDERED: cloNIDine 0.3mg/24 Hour PATCH TD SCH ×2 (03:00→09:00)
[2022-05-12] MEDS: HYDROcodone/Acetaminophen 5/325 mg Tablet PO PRN ×2 (03:32→18:25)
[2022-05-12] MEDS: HumaLOG 300 UNITS/3 ML VIAL SC PRN ×3 (06:22→18:18)
[2022-05-12 06:35] LABS: #Eosinphils 0.2 thou/uL (0.0-0.7); #Lymphocytes 0.9 thou/uL (1.20-3.40); #Monocytes 2.2 thou/uL (0.11-0.59); #Neutrophils 16.5 thou/uL (1.40-6.50); %Basophils 0.2 % (0.0-1.0); %Eosinophils 1.2 % (0.0-10.0); %Lymphocytes 4.4 % (21.0-51.0); %Monocytes 10.9 % (0.0-10.0); %Neutrophils 83.3 % (42.0-75.0); Hemoglobin 15.8 g/dL (14.0-18.0); Mean Corpuscular HGB CONC 34.9 g/dL (32.0-36.0); Mean Corpuscular Hemoglobin 28.9 pg (27.0-31.0); Mean Corpuscular Volume 82.7 fl (78.0-98.0); Mean Platelet Volume 9.4 fL (7.4-10.4); Platelet Count 297 10x3/uL (130-400); RBC Distribution Width 13.2 % (11.5-14.5); Red Blood Cell (RBC) Count 5.46 mill/uL (4.70-6.10); White Blood Cell (WBC) Count 19.8 10x3/uL (4.8-10.8)
[2022-05-12 06:57] LABS: Anion Gap 15 mmol/L (10-20); BUN (Urea Nitrogen) 22 mg/dL (8.9-20.6); Calc. Creatinine Clearance 126 mL/min (70-130); Calcium 9.6 mg/dL (7.8-10.44); Carbon Dioxide 25 mmol/L (22-29); Chloride 104 mmol/L (98-107); Estimated GFR 87; Glucose 184 mg/dL (70-105); Potassium 3.6 mmol/L (3.5-5.1); Sodium 140 mmol/L (136-145)
[2022-05-12] MEDS ORDERED: Morphine 2 MG/ML VIAL SLOW IVP PRN (07:00)
[2022-05-12 07:01] LABS: Hemoglobin A1c 7.3 % (4.0-6.0)
[2022-05-12] MEDS ORDERED: predniSONE 20 MG TAB PO SCH (08:00)
[2022-05-12] MEDS ORDERED: BELIMUMAB SC SCH (09:00)
[2022-05-12] MEDS ORDERED: AUTO INJCT SC SCH (09:00)
[2022-05-12] MEDS ORDERED: FLU VACC QS2022-23(6MOS UP)/PF 60 MCG/0.5 ML SYRINGE IM ONE (09:00)
[2022-05-12] MEDS: Hydroxychloroquine Sulfate 200 MG TAB PO SCH ×2 (09:37→21:05)
[2022-05-12] MEDS: hydrALAZINE 25 MG TAB PO SCH ×2 (09:38→21:05)
[2022-05-12] MEDS: Spironolactone 25 MG TAB PO SCH (09:38)
[2022-05-12] MEDS: Mycophenolate 250 MG CAP PO SCH ×2 (09:38→21:05)
[2022-05-12] MEDS: Atenolol 50 MG TAB PO SCH (09:39)
[2022-05-12] MEDS: Famotidine 20 MG TAB PO SCH ×2 (09:39→21:05)
[2022-05-12] MEDS: Colchicine 0.6 MG TAB PO SCH (09:39)
[2022-05-12] MEDS: Valsartan 80 MG TAB PO SCH (09:39)
[2022-05-12] MEDS: Acyclovir Sodium 660 MG in Sodium Chloride 0.9% 100 ML IVPB SCH ×2 (09:40→16:17)
[2022-05-13] MEDS: Acyclovir Sodium 660 MG in Sodium Chloride 0.9% 100 ML IVPB SCH ×2 (00:17→09:21)
[2022-05-13] MEDS: HYDROcodone/Acetaminophen 5/325 mg Tablet PO PRN (00:26)
[2022-05-13] MEDS ORDERED: diphenhydrAMINE 25 MG CAP PO SCH (01:15)
[2022-05-13 05:31] LABS: #Eosinphils 0.1 thou/uL (0.0-0.7); #Lymphocytes 0.9 thou/uL (1.20-3.40); #Monocytes 1.5 thou/uL (0.11-0.59); #Neutrophils 13.2 thou/uL (1.40-6.50); %Basophils 0.2 % (0.0-1.0); %Eosinophils 0.4 % (0.0-10.0); %Lymphocytes 5.5 % (21.0-51.0); %Monocytes 9.3 % (0.0-10.0); %Neutrophils 84.7 % (42.0-75.0); Hemoglobin 13.5 g/dL (14.0-18.0); Mean Corpuscular HGB CONC 34.4 g/dL (32.0-36.0); Mean Corpuscular Hemoglobin 28.5 pg (27.0-31.0); Mean Corpuscular Volume 82.9 fl (78.0-98.0); Mean Platelet Volume 9.2 fL (7.4-10.4); Platelet Count 234 10x3/uL (130-400); RBC Distribution Width 13.1 % (11.5-14.5); Red Blood Cell (RBC) Count 4.75 mill/uL (4.70-6.10); White Blood Cell (WBC) Count 15.6 10x3/uL (4.8-10.8)
[2022-05-13 05:55] LABS: Anion Gap 12 mmol/L (10-20); BUN (Urea Nitrogen) 25 mg/dL (8.9-20.6); Calc. Creatinine Clearance 139 mL/min (70-130); Calcium 9.2 mg/dL (7.8-10.44); Carbon Dioxide 24 mmol/L (22-29); Chloride 108 mmol/L (98-107); Estimated GFR 98; Glucose 176 mg/dL (70-105); Potassium 3.7 mmol/L (3.5-5.1); Sodium 140 mmol/L (136-145)
[2022-05-13] MEDS: HumaLOG 300 UNITS/3 ML VIAL SC PRN (06:05)
[2022-05-13] MEDS ORDERED: predniSONE 5 MG TAB PO SCH (08:00)
[2022-05-13] MEDS: hydrALAZINE 25 MG TAB PO SCH (08:30)
[2022-05-13] MEDS: Colchicine 0.6 MG TAB PO SCH (08:30)
[2022-05-13] MEDS: Mycophenolate 250 MG CAP PO SCH (08:31)
[2022-05-13] MEDS: Hydroxychloroquine Sulfate 200 MG TAB PO SCH (08:31)
[2022-05-13] MEDS: Spironolactone 25 MG TAB PO SCH (08:32)
[2022-05-13] MEDS: Atenolol 50 MG TAB PO SCH (08:33)
[2022-05-13 08:36] VITALS: BP 150/74; TEMP 97.7
[2022-05-13] MEDS: Famotidine 20 MG TAB PO SCH (08:39)
[2022-05-13] MEDS: Valsartan 80 MG TAB PO SCH (09:28)
== END 2022-05-13 11:24 | disposition home or self-care (01) | DRG 866 ==
LOC: ERS 19:14 → T4-A 22:19
PROVIDERS: ADMIT Internal Medicine; ATTEND Internal Medicine
DX: B02.7 Disseminated zoster (principal); M32.9 Systemic lupus erythematosus, unspecified; I10 Essential (primary) hypertension; F41.9 Anxiety disorder, unspecified; E11.65 Type 2 diabetes mellitus with hyperglycemia; Z20.822 Contact with and (suspected) exposure to COVID-19; Z88.8 Allergy status to other drugs, medicaments and biological substances; Z79.899 Other long term (current) drug therapy; Z87.891 Personal history of nicotine dependence
CPT/HCPCS: 36415; 36416; 80048; 80053; 83036; 85025; 87040; 87389; 93005; J0133; J0360; J1815; J1885; J2270; J3490; J7050; J7512; J7517; U0003; U0005

== ENCOUNTER 2023-05-04 22:57 | Emergency (ER) | payer BC, MEDICARE ==
[2023-05-04 23:27] LABS: #Basophils 0.1 thou/uL (0.0-0.2); #Eosinphils 0.2 thou/uL (0.0-0.7); #Monocytes 0.9 thou/uL (0.11-0.59); #Neutrophils 6.9 thou/uL (1.40-6.50); %Basophils 0.5 % (0.0-1.0); %Eosinophils 2.6 % (0.0-10.0); %Lymphocytes 12.1 % (21.0-51.0); %Monocytes 10.1 % (0.0-10.0); %Neutrophils 74.1 % (42.0-75.0); Hematocrit 43.9 % (42.0-52.0); Hemoglobin 15.4 g/dL (14.0-18.0); Mean Corpuscular HGB CONC 35.1 g/dL (32.0-36.0); Mean Corpuscular Hemoglobin 28.1 pg (27.0-31.0); Mean Corpuscular Volume 80.1 fl (78.0-98.0); Platelet Count 255 10x3/uL (130-400); RBC Distribution Width 12.6 % (11.5-14.5); Red Blood Cell (RBC) Count 5.48 mill/uL (4.70-6.10); White Blood Cell (WBC) Count 9.3 10x3/uL (4.8-10.8)
[2023-05-04 23:53] LABS: Troponin I Less than 0.010 ng/mL (< 0.028)
[2023-05-04 23:55] LABS: ALT (SGPT) 26 U/L (8-55); AST (SGOT) 21 U/L (5-34); Albumin 4.3 g/dL (3.5-5.0); Alkaline Phosphatase 116 U/L (40-110); Anion Gap 12 mmol/L (10-20); BUN (Urea Nitrogen) 12 mg/dL (8.9-20.6); Bilirubin, Total 0.4 mg/dL (0.2-1.2); Calc. Creatinine Clearance 0 mL/min (70-130); Calcium 9.6 mg/dL (7.8-10.44); Carbon Dioxide 28 mmol/L (22-29); Chloride 104 mmol/L (98-107); Estimated GFR 113; Globulin 2.5 g/dL (2.4-3.5); Glucose 176 mg/dL (70-105); Protein, Total 6.8 g/dL (6.0-8.3); Sodium 140 mmol/L (136-145)
[2023-05-05 00:38] LABS: Magnesium 1.7 mg/dL (1.6-2.6)
== END 2023-05-05 01:17 | disposition home or self-care (01) ==
LOC: ERS 22:57
DX: R07.89 Other chest pain (principal); R42 Dizziness and giddiness; E11.9 Type 2 diabetes mellitus without complications; I10 Essential (primary) hypertension
CPT/HCPCS: 71045; 80053; 83735; 84484; 85025; 93005